=== PATIENT | male | born 1970 | race Caucasian/White ===

== ENCOUNTER 2021-02-04 04:22 | Emergency (ER) | payer SELFPAY ==
[2021-02-04 04:34] VITALS: BP 129/87; PULSE 83
--- NOTE | 2021-02-04 04:40 | EDM.PDOC ---
ED HPI GENERAL MEDICAL PROBLEM - General Chief Complaint: Upper Extremity Injury/Pain Stated Complaint: INJURED RIGHT SHOULDER Time Seen by Provider: 02/04/21 04:25 Source of Information: Reports: Patient History Limitations: Reports: Intoxication - History of Present Illness INITIAL COMMENTS - FREE TEXT/NARRATIVE: 50-year-old male who lunged out to try to stop his girlfriend from falling had a sudden pain in his right shoulder, he is holding his arm next to his body which is his most comfortable position and has an obvious deformity. He is intoxicated but no other complaints. Onset: Sudden Duration: Hour(s): (2 hours ago) Location: Reports: Upper Extremity, Right Associated Symptoms: Reports: No Other Symptoms Right Shoulder Pain Score (Numeric/FACES): 9 - Related Data Allergies Allergy/AdvReac Type Severity Reaction Status Date / Time No Known Allergies Allergy Verified 02/04/21 04:30 Home Meds: Home Meds NK [No Known Home Meds] 02/04/21 [History] Past Medical History - Past Health History Medical/Surgical History: Denies Medical/Surgical History Social & Family History - Tobacco Use Tobacco Use Status *Q: Light Tobacco User Years of Tobacco use: 25 Packs/Tins Daily: 1 - Caffeine Use Caffeine Use: Reports: None - Alcohol Use Days Per Week of Alcohol Use: 7 Number of Drinks Per Day: 2 Total Drinks Per Week: 14 - Recreational Drug Use Recreational Drug Use: No Review of Systems - Review of Systems Review Of Systems: See Below Constitutional: Denies: Fever Respiratory: Reports: No Symptoms Cardiovascular: Reports: No Symptoms GI/Abdominal: Reports: No Symptoms Musculoskeletal: Reports: Other (Right shoulder pain) Skin: Reports: No Symptoms ED EXAM, GENERAL - Physical Exam Exam: See Below Exam Limited By: No Limitations General Appearance: Alert, Other (Intoxicated) Head: Atraumatic Respiratory/Chest: No Respiratory Distress Extremities: Other (There is a fullness in the anterior right shoulder with a subdistal clavicle defect and significant pain with any passive range of motion of the right arm) Neurological: Alert, Oriented Psychiatric: No: Anxious Skin Exam: Warm, Dry Course - Vital Signs Last Recorded V/S: Last Vital Signs Temp 98.2 F 02/04/21 04:35 Pulse 83 02/04/21 04:35 Resp 20 02/04/21 04:35 BP 129/87 02/04/21 04:35 Pulse Ox 95 02/04/21 04:35 - Orders/Labs/Meds Orders: Active Orders 24 hr Category Date Time Status Consult to Orthopedic Clinic [CONS] Routine Cons 02/04/21 05:10 Active Shoulder 1V Rt [CR] Stat Exams 02/04/21 04:33 Taken Shoulder 1V Rt [CR] Stat Exams 02/04/21 04:54 Taken Meds: Medications Discontinued Medications Generic Name Dose Route Start Last Admin Trade Name Reyes PRN Reason Stop Dose Admin Propofol Confirm 02/04/21 05:00 Propofol 200 Mg/20 Ml Sdv Administered 02/04/21 05:01 Dose 200 mg .ROUTE .STK-MED ONE - Re-Assessments/Exams Free Text/Narrative Re-Assessment/Exam: 02/04/21 04:40 Right shoulder x-ray was obtained, anesthesia was consulted for assistance for sedation to reduce the shoulder. 02/04/21 05:11 With the assistance of propofol anesthesia provided by SERVICE LIAISON REPRESENTATIVE, shoulder was reduc ed without complications. A sling was applied and the patient recovered nicely. I am asking him to see Dr. Smith for a follow-up since this is a first- time dislocation, he is young and actively employed. Departure - Departure Time of Disposition: 06:15 Disposition: Home, Self-Care 01 Clinical Impression: Dislocation of right shoulder joint Qualifiers: Encounter type: initial encounter Qualified Code(s): S43.004A - Unspecified dislocation of right shoulder joint, initial encounter - Discharge Information Instructions: Shoulder Dislocation, [id number] Referrals: PCP,None [Primary Care Provider] - Forms: ED Department Discharge Care Plan Goals: Keep arm in sling until rechecked with Dr. Smith this week. You should get a call later today to discuss an appointment time. Ibuprofen or naproxen will help with discomfort. Sepsis Event Note (ED) - Evaluation Sepsis Screening Result: No Definite Risk - Focused Exam Vital Signs: Vital Signs Temp Pulse Resp BP Pulse Ox 02/04/21 04:35 98.2 F 83 20 129/87 95 02/04/21 04:30 98.2 F 83 20 129/87 95 - My Orders Last 24 Hours: My Active Orders 02/04/21 04:33 Shoulder 1V Rt [CR] Stat 02/04/21 04:54 Shoulder 1V Rt [CR] Stat 02/04/21 05:10 Consult to Orthopedic Clinic [CONS] Routine - Assessment/Plan Last 24 Hours: My Active Orders 02/04/21 04:33 Shoulder 1V Rt [CR] Stat 02/04/21 04:54 Shoulder 1V Rt [CR] Stat 02/04/21 05:10 Consult to Orthopedic Clinic [CONS] Routine
[2021-02-04] MEDS ORDERED: Propofol 200 MG/20 ML SDV ONE (05:00)
--- NOTE | 2021-02-04 11:02 | CR ---
Shoulder 1V Rt, CLINICAL HISTORY: Fracture versus dislocation FINDINGS: There is an anterior dislocation at the glenohumeral joint. No fracture line is identified. Impression: Anterior dislocation of the humeral head Shoulder 1V Rt CLINICAL HISTORY: Postreduction FINDINGS: The anterior dislocation has been reduced. No fracture line is seen. IMPRESSION: Post reduction right shoulder dislocation No fracture seen
== END 2021-02-04 06:26 | disposition home or self-care (01) ==
LOC: JP.ED 04:22
DX: S43.014A Anterior dislocation of right humerus, initial encounter (principal); Z72.0 Tobacco use; X50.0XXA Overexertion from strenuous movement or load, initial encounter
CPT/HCPCS: 23650; 73020; 99283; J2704

== ENCOUNTER 2021-05-29 08:05 | Day surgery (SDC) | payer OTHER ==
[~2021-05-29 08:05] MED LIST: Bupivacaine 0.5% 30 ML SDV ONE; Midazolam 1 MG/ML 2 ML SDV ONE; Propofol 200 MG/20 ML SDV ONE; fentaNYL 100 MCG/2 ML SDV ONE
[2021-05-29] MEDS ORDERED: Lactated Ringers 1,000 ML IV SCH (08:45)
[2021-05-29] MEDS ORDERED: Nozin Nasal Sanitizer NASBOTH ONE (08:45)
[2021-05-29] MEDS ORDERED: ceFAZolin 2 GM in Premix Bag 1 BAG IV ONE (09:15)
[2021-05-29] MEDS ORDERED: Bupivacaine 0.5% 30 ML SDV ONE (09:46)
[2021-05-29] MEDS ORDERED: Midazolam 1 MG/ML 2 ML SDV ONE ×2 (10:11→11:02)
[2021-05-29] MEDS ORDERED: Propofol 200 MG/20 ML SDV ONE ×3 (10:23→11:34)
[2021-05-29] MEDS ORDERED: Lactated Ringers 1,000 ML ONE (10:28)
[2021-05-29] MEDS ORDERED: fentaNYL 100 MCG/2 ML SDV ONE (12:11)
[2021-05-29 13:48] VITALS: BP 128/86; PULSE 59
--- NOTE | 2021-05-29 19:44 | OR ---
DATE OF PROCEDURE: 05/29/2021 SURGEON: Prashant Smith MD PREOPERATIVE DIAGNOSIS: Traumatic rotator cuff tear, right shoulder. POSTOPERATIVE DIAGNOSES: 1. Traumatic rotator cuff tear, right shoulder, large and retracted. 2. Partial biceps tendon tear, long head. 3. Subluxation of biceps tendon, long head. PROCEDURE: 1. Arthroscopy, right shoulder with biceps tenotomy. 2. Arthroscopic rotator cuff repair. CONTRACT TECHNICAL WRITER: STEVIE Howe ANESTHESIA: Interscalene block with sedation. INDICATIONS: Mr. Guzman is a 51-year-old gentleman, who sustained a dislocation of his right shoulder in January of this year. He has had difficulty regaining active range of motion and strength. When conservative treatment and therapy failed, underwent an MRI which reveals a large full-thickness tear of the rotator cuff with some retraction. He now presents to the operating room for attempted repair. Risks, benefits, and potential complications of the procedure were discussed. DESCRIPTION OF PROCEDURE: After adequate anesthesia was obtained, the patient was placed in a lateral decubitus position and secured with a may bag positioner. Right shoulder and arm were prepped and draped in a sterile fashion and 10 pounds of traction was placed in shoulder traction unit. A standard posterior portal was established. The scope was introduced. The glenohumeral joint was inspected. This revealed no evidence of a significant articular cartilage damage to the humeral head or glenoid. Glenoid labrum was intact. Biceps attachment and superior labrum were intact. However, the biceps was subluxed out of the groove and there is a partial tear of the tendon near the area where it would enter the groove. Due to the combination of partial tear and subluxation, decision was made to proceed with biceps tenotomy. Anterior portal was established and the biceps was transected at its attachment to the superior glenoid using radiofrequency ablation. Remainder of the shoulder was visualized with an intact subscapularis. The rotator cuff showed a large retracted tear. The scope was removed from the joint and placed in the subacromial space. This revealed evidence of significant impingement against the coracoacromial ligament, which was extremely frayed. Rotator cuff showed a large retracted tear with delamination and fraying more of the posterior cuff in the infraspinatus. The supraspinous was detached and retracted. Some scarring was present to the overlying bursa as well as to the glenoid. Using a combination of the shaver, radiofrequency ablation and an elevator adhesions were released allowing better mobilization of the cuff. Once the delaminated portion was debrided and the cuff was mobilized, the edge of the tendon could be brought out just beyond the level of the articular surface, but could not be mobilize completely out to the edge of the tuberosity. A decision was made to proceed with repair. The superior surface of the tuberosity up to the level of the articular surface was debrided with a shaver and then lightly decorticated with a bur. Undersurface of the acromion was decompressed with a radiofrequency ablation on removing the impinging coracoacromial ligament leaving a thin soft tissue layer over the acromion and the acromioplasty was not performed as it was felt that this would not enhance the procedure. The edges of the cuff were debrided with a shaver and an Orthocord suture was placed through the posterior portion of the tear and the anterior portion the tear approximately 8 mm from the apex of the tear and used to converge the margins. A Mitek helix anchor was then placed anteriorly. The tuberosity and all 4 limbs of the sutures were brought up through the supraspinatus. Separate anchor was then placed more posteriorly and all 4 limbs were brought up through the posterior portion of the tear in the infraspinatus. These were then tied down from posterior to anterior, achieving approximation of the tendon to the tuberosity. One of the peers of tight sutures from the anterior anchor and one from the posterior anchor were selected and secured into the lateral aspect of the tuberosity with a knotless anchor. The other set of sutures were then placed more anteriorly with a second knotless anchor creating a crisscross suture bridge. The suture that had been placed into the apex was also secured into the tuberosity using a knotless anchor. Once this was accomplished, the arm could be taken through internal and external rotation and this was a stable repair. Shoulder was drained. Port sites were closed with 3-0 Monocryl and Steri-Strips. Sterile dressing was then applied. The patient tolerated the procedure very well. There were no complications and taken from the operating room in stable condition. Prashant Smith MD /[id number]
== END 2021-05-29 14:10 | disposition home or self-care (01) ==
LOC: JP.SDS 08:05
PROVIDERS: ATTEND Specialist
DX: S46.011A Strain of muscle(s) and tendon(s) of the rotator cuff of right shoulder, initial encounter (principal); S46.111A Strain of muscle, fascia and tendon of long head of biceps, right arm, initial encounter; S43.001A Unspecified subluxation of right shoulder joint, initial encounter; I10 Essential (primary) hypertension; F17.210 Nicotine dependence, cigarettes, uncomplicated; Z79.899 Other long term (current) drug therapy
CPT/HCPCS: 29827; A9270; C1713; J0690; J2250; J2704; J3010; J3490; J7120

== ENCOUNTER 2022-11-30 08:54 | Emergency (ER) | payer MEDICAID ==
[2022-11-30] MEDS ORDERED: Ketorolac 30 MG/ML SDV IM ONE (09:43)
[2022-11-30] MEDS ORDERED: Sodium Chloride 0.9% 10 ML Syringe FLUSH PRN (09:43)
[2022-11-30] MEDS ORDERED: Naloxone 0.4 MG/ML SDV IVPUSH PRN (09:45)
[2022-11-30] MEDS ORDERED: HYDROmorphone 1 MG/ML Syringe IVPUSH ONE (09:45)
[2022-11-30] MEDS ORDERED: Ketorolac 30 MG/ML SDV IVPUSH ONE (09:46)
[2022-11-30 10:02] LABS: BASOPHILS ABSOLUTE AUTO 0.04 K/uL (0.00-0.10); BASOPHILS PERCENT AUTO 0.4 % (0.1-1.3); EOSINOPHILS ABSOLUTE AUTO 0.33 K/uL (0.00-0.40); EOSINOPHILS PERCENT AUTO 3.3 % (0.0-5.4); HEMATOCRIT 40.5 % (38.4-49.7); HEMOGLOBIN 13.9 g/dL (12.9-16.9); IMMATURE GRAN ABSOLUTE AUTO 0.04 K/uL (0.00-0.23); IMMATURE GRAN PERCENT AUTO 0.4 % (0.0-0.7); LYMPHOCYTES ABSOLUTE AUTO 3.34 K/uL (0.8-3.3); LYMPHOCYTES PERCENT AUTO 32.9 % (11.4-47.7); MEAN CORPUSCULAR HEMOGLOBIN 31.4 pg (31.6-35.5); MEAN CORPUSCULAR HGB CONC 34.3 g/dL (31.6-35.5); MEAN CORPUSCULAR VOLUME 91.6 fL (81.4-99.0); MONOCYTES ABSOLUTE AUTO 0.64 K/uL (0.20-0.90); MONOCYTES PERCENT AUTO 6.3 % (3.3-12.6); NEUTROPHILS ABSOLUTE AUTO 5.76 K/uL (1.0-7.6); NEUTROPHILS PERCENT AUTO 56.7 % (40.0-78.1); PLATELET COUNT,PLT 265 K/uL (130-375); RED BLOOD CELL COUNT 4.42 M/uL (4.14-5.76); WHITE BLOOD CELL COUNT,WBC 10.2 K/uL (3.2-11.0)
[2022-11-30 10:25] LABS: CALCIUM 9.4 mg/dL (8.5-10.1); CREATININE 0.9 mg/dL (0.8-1.3); EST CRCL DRUG DOSING (CG) 90.78 mL/min; POTASSIUM,K 4.1 mmol/L (3.6-5.2)
[2022-11-30 10:26] LABS: ANION GAP 19.1 mmol/L (5.0-14.0)
[2022-11-30 10:36] VITALS: BP 129/84; PULSE 84
== END 2022-11-30 11:22 | disposition home or self-care (01) ==
LOC: JP.ED 08:54
DX: G89.18 Other acute postprocedural pain (principal); M54.16 Radiculopathy, lumbar region; I10 Essential (primary) hypertension; Z72.0 Tobacco use; Z79.899 Other long term (current) drug therapy; Z98.1 Arthrodesis status
CPT/HCPCS: 36415; 72100; 80048; 85025; 86140; 96374; 96375; 99284; J1170; J1885; J3490

== ENCOUNTER 2023-06-21 10:51 | Inpatient (IN) | payer MEDICAID ==
[2023-06-21] MEDS ORDERED: Sodium Chloride 0.9% 10 ML Syringe FLUSH PRN (11:32)
[2023-06-21 11:44] LABS: BASOPHILS ABSOLUTE AUTO 0.04 K/uL (0.00-0.10); BASOPHILS PERCENT AUTO 0.3 % (0.1-1.3); EOSINOPHILS ABSOLUTE AUTO 0.08 K/uL (0.00-0.40); EOSINOPHILS PERCENT AUTO 0.6 % (0.0-5.4); HEMATOCRIT 41.9 % (38.4-49.7); HEMOGLOBIN 14.8 g/dL (12.9-16.9); IMMATURE GRAN ABSOLUTE AUTO 0.07 K/uL (0.00-0.23); IMMATURE GRAN PERCENT AUTO 0.5 % (0.0-0.7); LYMPHOCYTES ABSOLUTE AUTO 2.03 K/uL (0.8-3.3); LYMPHOCYTES PERCENT AUTO 14.5 % (11.4-47.7); MEAN CORPUSCULAR HEMOGLOBIN 37.4 pg (31.6-35.5); MEAN CORPUSCULAR HGB CONC 35.3 g/dL (31.6-35.5); MEAN CORPUSCULAR VOLUME 105.8 fL (81.4-99.0); MONOCYTES PERCENT AUTO 8.5 % (3.3-12.6); NEUTROPHILS ABSOLUTE AUTO 10.62 K/uL (1.0-7.6); NEUTROPHILS PERCENT AUTO 75.6 % (40.0-78.1); PLATELET COUNT,PLT 98 K/uL (130-375); RED BLOOD CELL COUNT 3.96 M/uL (4.14-5.76)
[2023-06-21 12:01] LABS: CALCIUM 8.5 mg/dL (8.5-10.1); CREATININE 0.8 mg/dL (0.8-1.3); EST CRCL DRUG DOSING (CG) 104.33 mL/min; POTASSIUM,K 3.6 mmol/L (3.6-5.2)
[2023-06-21 12:02] LABS: ANION GAP 11.6 mmol/L (5.0-14.0)
[2023-06-21] MEDS ORDERED: Sodium Chloride 0.9% 1,000 ML IV ONE (12:03)
[2023-06-21] MEDS ORDERED: HYDROmorphone 0.5 MG/0.5 ML Syringe IVPUSH ONE (12:03)
[2023-06-21 12:17] LABS: PROTHROMBIN TIME 10.3 sec (9.2-10.6)
[2023-06-21 12:21] LABS: A/G RATIO 0.7 (1.2-2.2); ALBUMIN 2.9 g/dL (3.4-5.0); BILIRUBIN DIRECT 1.01 mg/dL (0.0-0.2); BILIRUBIN INDIRECT 1.09; BILIRUBIN TOTAL 2.1 mg/dL (0.2-1.0); PROTEIN TOTAL,TP 7.2 g/dL (6.4-8.2)
[2023-06-21 12:41] LABS: CORONAVIRUS COVID-19 NAA NEGATIVE (NEGATIVE); INFLUENZA A NAA NEGATIVE (NEGATIVE); INFLUENZA B NAA NEGATIVE (NEGATIVE); RESPIRATORY SYNCYTIAL VIR NAA NEGATIVE (NEGATIVE)
[2023-06-21] MEDS ORDERED: LORazepam 1 MG Tab PO SCH (12:53)
[2023-06-21] MEDS ORDERED: Albuterol 0.083% 2.5 MG/3 ML Neb Soln NEB PRN (12:53)
[2023-06-21] MEDS ORDERED: Ondansetron 4 MG/2 ML SDV IV PRN (12:53)
[2023-06-21] MEDS ORDERED: Polyethylene Glycol 3350 Powder 17 GM Packet PO PRN (12:53)
[2023-06-21] MEDS ORDERED: Naloxone 0.4 MG/ML SDV IVPUSH PRN (12:53)
[2023-06-21] MEDS ORDERED: MVI, Adult with Vitamin K 10 ML, Thiamine 100 MG, Folic Acid 1 MG, Magnesium Sulfate 2 ... IV ONE ×5 (13:15)
[2023-06-21] MEDS: Sennosides/Docusate Sodium 50-8.6 MG Tab PO SCH ×2 (13:56→22:09)
[2023-06-21] MEDS: Folic Acid 1 MG Tab PO SCH (13:57)
[2023-06-21] MEDS: Thiamine 100 MG Tab PO SCH (13:57)
[2023-06-21] MEDS ORDERED: Gabapentin 100 MG Cap PO SCH (14:00)
[2023-06-21] MEDS: Heparin Sodium 5,000 Units/ML Vial SUBCUT SCH ×2 (15:02→22:08)
[2023-06-21] MEDS: Gabapentin 300 MG Cap PO SCH ×2 (15:02→22:09)
[2023-06-21] MEDS: DULoxetine 30 MG Cap PO SCH (15:02)
[2023-06-21] MEDS: oxyCODONE 5 MG Tab PO PRN ×2 (17:21→22:13)
[2023-06-21] MEDS: HYDROmorphone 0.5 MG/0.5 ML Syringe IVPUSH PRN (18:45)
[2023-06-22] MEDS: Sodium Chloride 0.9% 1,000 ML IV SCH ×3 (00:15→21:35)
[2023-06-22 05:36] LABS: HEMATOCRIT 37.5 % (38.4-49.7); HEMOGLOBIN 13.1 g/dL (12.9-16.9); MEAN CORPUSCULAR HEMOGLOBIN 36.8 pg (31.6-35.5); MEAN CORPUSCULAR HGB CONC 34.9 g/dL (31.6-35.5); MEAN CORPUSCULAR VOLUME 105.3 fL (81.4-99.0); RED BLOOD CELL COUNT 3.56 M/uL (4.14-5.76)
[2023-06-22 05:52] LABS: A/G RATIO 0.6 (1.2-2.2); ALANINE AMINOTRANSFERASE,ALT 67 U/L (12-78); ALBUMIN 2.3 g/dL (3.4-5.0); ALKALINE PHOSPHATASE 210 U/L (46-116); ASPARTATE AMNIOTRANSFERASE,AST 72 U/L (15-37); BILIRUBIN TOTAL 1.6 mg/dL (0.2-1.0); BLOOD UREA NITROGEN,BUN 8 mg/dL (7-18); CALCIUM 7.8 mg/dL (8.5-10.1); CARBON DIOXIDE,CO2 24 mmol/L (21-32); CHLORIDE,CL 104 mmol/L (100-108); CREATININE 0.6 mg/dL (0.8-1.3); EST CRCL DRUG DOSING (CG) 139.11 mL/min; ESTIMATED GFR 114 mL/min (>60); GLUCOSE RANDOM 98 mg/dL (74-106); MAGNESIUM 1.9 mg/dL (1.8-2.4); POTASSIUM,K 3.9 mmol/L (3.6-5.2); PROTEIN TOTAL,TP 6.2 g/dL (6.4-8.2); SODIUM,NA 134 mmol/L (140-148)
[2023-06-22] MEDS: HYDROmorphone 0.5 MG/0.5 ML Syringe IVPUSH PRN ×4 (05:56→19:44)
[2023-06-22 06:11] LABS: ANION GAP 9.9 mmol/L (5.0-14.0)
[2023-06-22] MEDS: DULoxetine 30 MG Cap PO SCH (08:23)
[2023-06-22] MEDS: Thiamine 100 MG Tab PO SCH (08:23)
[2023-06-22] MEDS: Folic Acid 1 MG Tab PO SCH (08:23)
[2023-06-22] MEDS: Gabapentin 300 MG Cap PO SCH ×4 (08:23→20:14)
[2023-06-22] MEDS: Lisinopril 20 MG Tab PO SCH (08:24)
[2023-06-22] MEDS: Sennosides/Docusate Sodium 50-8.6 MG Tab PO SCH ×3 (08:24→20:15)
[2023-06-22] MEDS ORDERED: Rocuronium 50 MG/5 ML Vial ONE (10:02)
[2023-06-22] MEDS ORDERED: fentaNYL 250 MCG/5 ML SDV ONE (10:02)
[2023-06-22] MEDS ORDERED: Glycopyrrolate 0.2 MG/ML 5 ML MDV ONE (10:02)
[2023-06-22] MEDS ORDERED: Succinylcholine 200 MG/10 ML MDV ONE (10:02)
[2023-06-22] MEDS ORDERED: Ondansetron 4 MG/2 ML SDV ONE (10:02)
[2023-06-22] MEDS ORDERED: Neostigmine Methylsulfate 10 MG/10 ML MDV ONE (10:02)
[2023-06-22] MEDS ORDERED: Dexamethasone 4 MG/ML SDV ONE (10:02)
[2023-06-22] MEDS ORDERED: Propofol 200 MG/20 ML SDV ONE (10:02)
[2023-06-22] MEDS ORDERED: Bupivacaine 0.5% 50 ML MDV ONE (11:15)
[2023-06-22] MEDS: ceFAZolin 2 GM in Premix Bag 1 BAG IV ONE ×2 (11:35→13:58)
[2023-06-22] MEDS: oxyCODONE 5 MG Tab PO PRN ×3 (14:01→23:05)
[2023-06-22] MEDS: Acetaminophen 325 MG Tab PO PRN ×2 (15:13→23:06)
[2023-06-22] MEDS: Aspirin 325 MG Tab.EC PO SCH (19:46)
[2023-06-23] MEDS: oxyCODONE 5 MG Tab PO PRN ×5 (03:09→22:13)
[2023-06-23 04:53] LABS: HEMATOCRIT 34.8 % (38.4-49.7); HEMOGLOBIN 11.9 g/dL (12.9-16.9); MEAN CORPUSCULAR HGB CONC 34.2 g/dL (31.6-35.5); MEAN CORPUSCULAR VOLUME 108.1 fL (81.4-99.0); RED BLOOD CELL COUNT 3.22 M/uL (4.14-5.76)
[2023-06-23 05:09] LABS: CREATININE 0.7 mg/dL (0.8-1.3); EST CRCL DRUG DOSING (CG) 119.24 mL/min; POTASSIUM,K 4.8 mmol/L (3.6-5.2)
[2023-06-23 05:15] LABS: ANION GAP 11.8 mmol/L (5.0-14.0)
[2023-06-23] MEDS: Sodium Chloride 0.9% 1,000 ML IV SCH ×2 (07:27→17:38)
[2023-06-23] MEDS: Gabapentin 300 MG Cap PO SCH ×3 (08:20→22:11)
[2023-06-23] MEDS: Lisinopril 20 MG Tab PO SCH (08:20)
[2023-06-23] MEDS: Folic Acid 1 MG Tab PO SCH (08:20)
[2023-06-23] MEDS: DULoxetine 30 MG Cap PO SCH (08:20)
[2023-06-23] MEDS: Sennosides/Docusate Sodium 50-8.6 MG Tab PO SCH ×2 (08:20→22:11)
[2023-06-23] MEDS: Aspirin 325 MG Tab.EC PO SCH ×2 (08:20→22:11)
[2023-06-23] MEDS: Thiamine 100 MG Tab PO SCH (08:20)
[2023-06-23] MEDS: HYDROmorphone 0.5 MG/0.5 ML Syringe IVPUSH PRN ×2 (10:35→17:38)
[2023-06-23] MEDS: Acetaminophen 325 MG Tab PO PRN ×2 (10:35→16:11)
[2023-06-24] MEDS: Sodium Chloride 0.9% 1,000 ML IV SCH (03:41)
[2023-06-24] MEDS: Acetaminophen 325 MG Tab PO PRN ×4 (05:20→18:21)
[2023-06-24] MEDS: oxyCODONE 5 MG Tab PO PRN ×5 (05:21→22:15)
[2023-06-24] MEDS: Folic Acid 1 MG Tab PO SCH (08:58)
[2023-06-24] MEDS: Thiamine 100 MG Tab PO SCH (08:58)
[2023-06-24] MEDS: Aspirin 325 MG Tab.EC PO SCH ×2 (08:58→20:39)
[2023-06-24] MEDS: Gabapentin 300 MG Cap PO SCH ×3 (08:58→20:39)
[2023-06-24] MEDS: DULoxetine 30 MG Cap PO SCH (08:58)
[2023-06-24] MEDS: Sennosides/Docusate Sodium 50-8.6 MG Tab PO SCH ×2 (08:59→20:39)
[2023-06-24] MEDS: Lisinopril 20 MG Tab PO SCH (08:59)
[2023-06-24] MEDS: tiZANidine 2 MG Tab PO PRN ×2 (15:50→22:14)
[2023-06-25] MEDS: Acetaminophen 325 MG Tab PO PRN (01:39)
[2023-06-25 06:06] LABS: HEMATOCRIT 31.4 % (38.4-49.7); HEMOGLOBIN 10.9 g/dL (12.9-16.9); MEAN CORPUSCULAR HEMOGLOBIN 36.8 pg (31.6-35.5); MEAN CORPUSCULAR HGB CONC 34.7 g/dL (31.6-35.5); MEAN CORPUSCULAR VOLUME 106.1 fL (81.4-99.0); RED BLOOD CELL COUNT 2.96 M/uL (4.14-5.76); WHITE BLOOD CELL COUNT,WBC 10.7 K/uL (3.2-11.0)
[2023-06-25] MEDS: Gabapentin 300 MG Cap PO SCH ×3 (08:40→21:22)
[2023-06-25] MEDS: Folic Acid 1 MG Tab PO SCH (08:40)
[2023-06-25] MEDS: Aspirin 325 MG Tab.EC PO SCH ×2 (08:41→21:22)
[2023-06-25] MEDS: DULoxetine 30 MG Cap PO SCH (08:42)
[2023-06-25] MEDS: Thiamine 100 MG Tab PO SCH (08:42)
[2023-06-25] MEDS: Sennosides/Docusate Sodium 50-8.6 MG Tab PO SCH ×2 (08:42→21:22)
[2023-06-25] MEDS: Lisinopril 20 MG Tab PO SCH (08:43)
[2023-06-25] MEDS: oxyCODONE 5 MG Tab PO PRN ×3 (08:46→23:40)
[2023-06-25] MEDS: tiZANidine 2 MG Tab PO PRN ×2 (14:53→21:23)
[2023-06-25] MEDS ORDERED: Hydrocortisone 1% Crm 30 GM Tube TOP PRN (20:36)
[2023-06-25] MEDS ORDERED: diphenhydrAMINE 25 MG Cap PO PRN (20:38)
[2023-06-26] MEDS: tiZANidine 2 MG Tab PO PRN (07:48)
[2023-06-26] MEDS: Gabapentin 300 MG Cap PO SCH (08:42)
[2023-06-26] MEDS: Aspirin 325 MG Tab.EC PO SCH (08:42)
[2023-06-26] MEDS: Lisinopril 20 MG Tab PO SCH (08:43)
[2023-06-26] MEDS: Folic Acid 1 MG Tab PO SCH (08:44)
[2023-06-26] MEDS: Sennosides/Docusate Sodium 50-8.6 MG Tab PO SCH (08:44)
[2023-06-26] MEDS: Thiamine 100 MG Tab PO SCH (08:44)
[2023-06-26] MEDS: DULoxetine 30 MG Cap PO SCH (08:44)
[2023-06-26] MEDS: oxyCODONE 5 MG Tab PO PRN ×2 (09:07→13:40)
[2023-06-26] MEDS: Acetaminophen 325 MG Tab PO PRN ×2 (09:07→13:40)
[2023-06-26 12:40] VITALS: BP 136/73; PULSE 81
== END 2023-06-26 15:05 | disposition home or self-care (01) | DRG 482 ==
LOC: JP.ED 10:51 → JP.ICU 11:53
PROVIDERS: ADMIT Hospitalist; ATTEND Internal Medicine
PROC: 0QS706Z Reposition Left Upper Femur with Intramedullary Internal Fixation Device, Open Approach (ICD-10-PCS; principal; 2023-06-22 11:00)
DX: S72.142A Displaced intertrochanteric fracture of left femur, initial encounter for closed fracture (principal); G89.29 Other chronic pain; W18.30XA Fall on same level, unspecified, initial encounter; M43.06 Spondylolysis, lumbar region; H54.7 Unspecified visual loss; F17.210 Nicotine dependence, cigarettes, uncomplicated; F10.90 Alcohol use, unspecified, uncomplicated; M54.50 Low back pain, unspecified; Y92.098 Other place in other non-institutional residence as the place of occurrence of the external cause; Z79.899 Other long term (current) drug therapy; Z98.890 Other specified postprocedural states
CPT/HCPCS: 0241U; 36415; 72020; 72020-26; 73501-26-LT; 73501-LT; 73502-26-LT; 73502-LT; 73551-26-LT; 73551-LT; 76000; 80048; 80053; 80076; 80307; 83735; 85025; 85027; 85610; 93005; 93010; 97110-GP; 97116-GP; 97161-GP; 99222; 99232; 99238; 99284; 99285; A9270-GY; C1713; C1776; J0330; J0690; J1100; J1170; J1644; J2405; J2704; J2710; J3010; J3411; J3475; J3490; J7030

== ENCOUNTER 2023-07-04 06:58 | Emergency (ER) | payer MEDICAID ==
[2023-07-04] MEDS ORDERED: fentaNYL 50 MCG/ML SDV IVPUSH PRN (07:15)
[2023-07-04] MEDS ORDERED: Naloxone 0.4 MG/ML SDV IVPUSH PRN (07:15)
[2023-07-04 08:41] VITALS: BP 118/63; PULSE 92
[2023-07-04] MEDS ORDERED: oxyCODONE 5 MG Tab PO ONE (09:13)
== END 2023-07-04 09:40 | disposition home or self-care (01) ==
LOC: JP.ED 06:58
DX: S72.145A Nondisplaced intertrochanteric fracture of left femur, initial encounter for closed fracture (principal); S62.355A Nondisplaced fracture of shaft of fourth metacarpal bone, left hand, initial encounter for closed fracture; S70.02XA Contusion of left hip, initial encounter
CPT/HCPCS: 73130; 73502; 99283; A9270; J3010; 29125; 96374; 99284-25

== ENCOUNTER 2024-02-22 18:17 | Emergency (ER) | payer MEDICAID ==
[2024-02-22 18:47] LABS: BASOPHILS ABSOLUTE AUTO 0.05 K/uL (0.00-0.10); BASOPHILS PERCENT AUTO 0.3 % (0.1-1.3); EOSINOPHILS ABSOLUTE AUTO 0.12 K/uL (0.00-0.40); EOSINOPHILS PERCENT AUTO 0.7 % (0.0-5.4); HEMATOCRIT 28.5 % (38.4-49.7); HEMOGLOBIN 10.6 g/dL (12.9-16.9); IMMATURE GRAN ABSOLUTE AUTO 0.23 K/uL (0.00-0.23); IMMATURE GRAN PERCENT AUTO 1.4 % (0.0-0.7); LYMPHOCYTES ABSOLUTE AUTO 2.96 K/uL (0.8-3.3); LYMPHOCYTES PERCENT AUTO 18.4 % (11.4-47.7); MEAN CORPUSCULAR HGB CONC 37.2 g/dL (31.6-35.5); MEAN CORPUSCULAR VOLUME 107.5 fL (81.4-99.0); MONOCYTES ABSOLUTE AUTO 1.46 K/uL (0.20-0.90); MONOCYTES PERCENT AUTO 9.1 % (3.3-12.6); NEUTROPHILS ABSOLUTE AUTO 11.26 K/uL (1.0-7.6); NEUTROPHILS PERCENT AUTO 70.1 % (40.0-78.1); PLATELET COUNT,PLT 124 K/uL (130-375); RED BLOOD CELL COUNT 2.65 M/uL (4.14-5.76); WHITE BLOOD CELL COUNT,WBC 16.1 K/uL (3.2-11.0)
[2024-02-22 18:53] LABS: INR 1.3; PROTHROMBIN TIME 12.8 sec (9.2-10.6)
[2024-02-22] MEDS: Sodium Chloride 0.9% 1,000 ML IV SCH ×3 (19:00→21:35)
[2024-02-22 19:02] LABS: CHLORIDE,CL 101 mmol/L (100-108); ESTIMATED GFR 6 mL/min (>60); GLUCOSE RANDOM 119 mg/dL (74-106); POTASSIUM,K 4.4 mmol/L (3.6-5.2); SODIUM,NA 133 mmol/L (140-148)
[2024-02-22 19:10] LABS: ANION GAP 21.4 mmol/L (5.0-14.0)
[2024-02-22 19:11] LABS: BLOOD UREA NITROGEN,BUN 81 mg/dL (7-18); CARBON DIOXIDE,CO2 15 mmol/L (21-32); CREATININE 9.6 mg/dL (0.8-1.3)
[2024-02-22 19:13] LABS: A/G RATIO 0.4 (1.2-2.2); ALBUMIN 2.1 g/dL (3.4-5.0); BILIRUBIN DIRECT 2.02 mg/dL (0.0-0.2); BILIRUBIN INDIRECT 0.68; BILIRUBIN TOTAL 2.7 mg/dL (0.2-1.0)
[2024-02-22 19:17] LABS: TROPONIN I HIGH SENSITIVITY < 4.0 pg/mL (<=60.3)
[2024-02-22] MEDS: Sodium Chloride 0.9% 1,000 ML IV ONE (19:44)
[2024-02-22] MEDS: Norepinephrine Bit/D5W Premix 250 ML IV SCH (20:35)
[2024-02-22] MEDS: Piperacillin/Tazobactam 4.5 GM in Sodium Chloride 0.9% 100 ML IV ONE (21:35)
[2024-02-22 22:24] LABS: BASE EXCESS ARTERIAL -12.5 mm/L; BICARBONATE,ARTERIAL 11.6 mmol/L (22.0-26.0); O2 SATURATION ARTERIAL 98.9 % (95.0-98.0); OXYHEMOGLOBIN 94.9 %; PCO2 ARTERIAL 21.8 mmHg (35.0-42.0); TOTAL HEMOGLOBIN 8.6 g/dL (13.5-18.0)
[2024-02-22] MEDS ORDERED: Vasopressin 100 UNITS in Dextrose 5% in Water 250 ML IV SCH (22:30)
[2024-02-22 23:32] VITALS: BP 95/53; PULSE 106
== END 2024-02-22 23:00 ==
LOC: JP.ED 18:17
DX: N17.9 Acute kidney failure, unspecified (principal); I10 Essential (primary) hypertension; Z79.899 Other long term (current) drug therapy
CPT/HCPCS: 36415; 36600; 70450; 71250; 74176; 80048; 80076; 80307; 82803; 83605; 84484; 85025; 85610; 87040; 93005; 93010; 96361; 96365; 96367; 96368; 99285; 99291; J2543; J3370; J3490; J7030; J7050

== ENCOUNTER 2024-06-16 11:25 | Emergency (ER) | payer MEDICAID ==
[2024-06-16 12:06] VITALS: BP 99/72; PULSE 97
== END 2024-06-16 14:42 | disposition home or self-care (01) ==
LOC: JP.ED 11:25
DX: S50.02XA Contusion of left elbow, initial encounter (principal); R53.1 Weakness; W01.0XXA Fall on same level from slipping, tripping and stumbling without subsequent striking against object, initial encounter
CPT/HCPCS: 70450; 70450-26; 72125; 72125-26; 73070-26-LT; 73070-LT; 99284; 99285

== ENCOUNTER 2024-06-30 16:29 | Emergency (ER) | payer MEDICAID ==
[2024-06-30 17:59] LABS: BASOPHILS ABSOLUTE AUTO 0.03 K/uL (0.00-0.10); BASOPHILS PERCENT AUTO 0.3 % (0.1-1.3); EOSINOPHILS ABSOLUTE AUTO 0.22 K/uL (0.00-0.40); EOSINOPHILS PERCENT AUTO 2.5 % (0.0-5.4); HEMATOCRIT 26.1 % (38.4-49.7); HEMOGLOBIN 9.3 g/dL (12.9-16.9); IMMATURE GRAN PERCENT AUTO 0.2 % (0.0-0.7); LYMPHOCYTES ABSOLUTE AUTO 1.68 K/uL (0.8-3.3); LYMPHOCYTES PERCENT AUTO 19.2 % (11.4-47.7); MEAN CORPUSCULAR HEMOGLOBIN 31.5 pg (31.6-35.5); MEAN CORPUSCULAR HGB CONC 35.6 g/dL (31.6-35.5); MEAN CORPUSCULAR VOLUME 88.5 fL (81.4-99.0); MONOCYTES ABSOLUTE AUTO 0.95 K/uL (0.20-0.90); MONOCYTES PERCENT AUTO 10.9 % (3.3-12.6); NEUTROPHILS ABSOLUTE AUTO 5.85 K/uL (1.0-7.6); NEUTROPHILS PERCENT AUTO 66.9 % (40.0-78.1); PLATELET COUNT,PLT 143 K/uL (130-375); RED BLOOD CELL COUNT 2.95 M/uL (4.14-5.76); WHITE BLOOD CELL COUNT,WBC 8.8 K/uL (3.2-11.0)
[2024-06-30 18:05] LABS: IMMATURE GRAN ABSOLUTE AUTO 0.02 K/uL (0.00-0.23)
[2024-06-30 18:08] VITALS: BP 96/72; PULSE 97
[2024-06-30 18:19] LABS: INR 1.3; PROTHROMBIN TIME 13.4 sec (9.2-10.6)
[2024-06-30 18:22] LABS: A/G RATIO 0.4 (1.2-2.2); ALANINE AMINOTRANSFERASE,ALT 13 U/L (12-78); ALKALINE PHOSPHATASE 120 U/L (46-116); ASPARTATE AMNIOTRANSFERASE,AST 22 U/L (15-37); BILIRUBIN TOTAL 2.3 mg/dL (0.2-1.0); BLOOD UREA NITROGEN,BUN 22 mg/dL (7-18); CALCIUM 8.3 mg/dL (8.5-10.1); CARBON DIOXIDE,CO2 24 mmol/L (21-32); CHLORIDE,CL 102 mmol/L (100-108); CREATININE 1.5 mg/dL (0.8-1.3); EST CRCL DRUG DOSING (CG) 50.45 mL/min; ESTIMATED GFR 54 mL/min (>60); GLUCOSE RANDOM 135 mg/dL (74-106); POTASSIUM,K 3.8 mmol/L (3.6-5.2); PROTEIN TOTAL,TP 7.3 g/dL (6.4-8.2); SODIUM,NA 136 mmol/L (140-148)
[2024-06-30 18:24] LABS: ANION GAP 13.8 mmol/L (5.0-14.0)
[2024-06-30 18:27] LABS: LACTIC ACID 3.7 mmol/L (0.4-2.0)
== END 2024-06-30 19:24 | disposition left against medical advice (07) ==
LOC: JP.ED 16:29
DX: K70.31 Alcoholic cirrhosis of liver with ascites (principal); F10.10 Alcohol abuse, uncomplicated; D63.8 Anemia in other chronic diseases classified elsewhere; I10 Essential (primary) hypertension; F17.210 Nicotine dependence, cigarettes, uncomplicated; Z86.16 Personal history of COVID-19; Z88.8 Allergy status to other drugs, medicaments and biological substances; Z79.899 Other long term (current) drug therapy
CPT/HCPCS: 36415; 80053; 83605; 85025; 85610; 99284

== ENCOUNTER 2024-08-27 06:36 | Emergency (ER) | payer MEDICAID ==
[2024-08-27] MEDS: diphenhydrAMINE 50 MG/ML SDV IVPUSH ONE (06:57)
[2024-08-27] MEDS: Haloperidol Lactate 5 MG/ML SDV IVPUSH ONE (06:59)
[2024-08-27 07:30] LABS: BASOPHILS PERCENT AUTO 0.2 % (0.1-1.3); EOSINOPHILS ABSOLUTE AUTO 0.13 K/uL (0.00-0.40); EOSINOPHILS PERCENT AUTO 1.6 % (0.0-5.4); HEMATOCRIT 25.3 % (38.4-49.7); HEMOGLOBIN 8.8 g/dL (12.9-16.9); IMMATURE GRAN ABSOLUTE AUTO 0.03 K/uL (0.00-0.23); IMMATURE GRAN PERCENT AUTO 0.4 % (0.0-0.7); LYMPHOCYTES ABSOLUTE AUTO 2.36 K/uL (0.8-3.3); LYMPHOCYTES PERCENT AUTO 29.5 % (11.4-47.7); MEAN CORPUSCULAR HEMOGLOBIN 29.3 pg (31.6-35.5); MEAN CORPUSCULAR HGB CONC 34.8 g/dL (31.6-35.5); MEAN CORPUSCULAR VOLUME 84.3 fL (81.4-99.0); MONOCYTES ABSOLUTE AUTO 0.73 K/uL (0.20-0.90); MONOCYTES PERCENT AUTO 9.1 % (3.3-12.6); NEUTROPHILS ABSOLUTE AUTO 4.74 K/uL (1.0-7.6); NEUTROPHILS PERCENT AUTO 59.2 % (40.0-78.1); PLATELET COUNT,PLT 132 K/uL (130-375)
[2024-08-27 07:36] LABS: BASOPHILS ABSOLUTE AUTO 0.02 K/uL (0.00-0.10)
[2024-08-27 07:51] LABS: A/G RATIO 0.6 (1.2-2.2); ALANINE AMINOTRANSFERASE,ALT 14 U/L (12-78); ALBUMIN 2.3 g/dL (3.4-5.0); ALKALINE PHOSPHATASE 104 U/L (46-116); ASPARTATE AMNIOTRANSFERASE,AST 23 U/L (15-37); BILIRUBIN TOTAL 0.9 mg/dL (0.2-1.0); BLOOD UREA NITROGEN,BUN 70 mg/dL (7-18); CALCIUM 9.1 mg/dL (8.5-10.1); CARBON DIOXIDE,CO2 25 mmol/L (21-32); CHLORIDE,CL 102 mmol/L (100-108); EST CRCL DRUG DOSING (CG) 19.31 mL/min; ESTIMATED GFR 18 mL/min (>60); GLUCOSE RANDOM 115 mg/dL (74-106); POTASSIUM,K 4.5 mmol/L (3.6-5.2); PROTEIN TOTAL,TP 6.3 g/dL (6.4-8.2); SODIUM,NA 138 mmol/L (140-148)
[2024-08-27 07:53] LABS: ANION GAP 15.5 mmol/L (5.0-14.0)
[2024-08-27 07:54] LABS: CREATININE 3.7 mg/dL (0.8-1.3)
[2024-08-27 07:55] LABS: TROPONIN I HIGH SENSITIVITY 8.7 pg/mL (<=60.3)
[2024-08-27] MEDS: Sodium Chloride 0.9% 500 ML IV ONE (08:10)
[2024-08-27 08:28] LABS: BILIRUBIN,URINE NEGATIVE (NEGATIVE); COLOR,URINE YELLOW (YELLOW); GLUCOSE,URINE NEGATIVE (NEGATIVE); KETONES,URINE NEGATIVE (NEGATIVE); LEUKOCYTE ESTERASE,URINE NEGATIVE (NEGATIVE); NITRITE,URINE NEGATIVE (NEGATIVE); OCCULT BLOOD,URINE NEGATIVE (NEGATIVE); PROTEIN,URINE NEGATIVE (NEGATIVE); UROBILINOGEN,URINE 0.2 EU/dL (0.2-1.0)
[2024-08-27 08:35] LABS: AMORPHOUS SEDIMENT,URINE NOT SEEN; APPEARANCE,URINE CLEAR (CLEAR); BACTERIA,URINE RARE; EPITHELIAL CELLS,URINE RARE; MUCUS,URINE NOT SEEN; RBC,URINE 0-5 (0-5); WBC,URINE 0-5 (0-5)
[2024-08-27] MEDS: Lactulose Soln 10 GM/15 ML 15 ML UD Cup PO ONE ×2 (08:45→15:34)
[2024-08-27 08:46] LABS: INR 1.1; PROTHROMBIN TIME 11.3 sec (9.2-10.6)
[2024-08-27] MEDS: cefTRIAXone 1 GM in Sodium Chloride 0.9% 50 ML IV ONE (08:50)
[2024-08-27] MEDS: Sodium Chloride 0.9% 1,000 ML IV SCH (09:27)
[2024-08-27] MEDS: Sodium Chloride 0.9% 250 ML IV SCH (13:46)
[2024-08-27 15:49] VITALS: BP 87/61; PULSE 119
[2024-08-27] MEDS: LORazepam 2 MG/ML SDV IVPUSH ONE (16:00)
== END 2024-08-27 16:09 ==
LOC: JP.ED 06:36
DX: K76.82 Hepatic encephalopathy (principal); N17.9 Acute kidney failure, unspecified; I10 Essential (primary) hypertension; F17.210 Nicotine dependence, cigarettes, uncomplicated; Z88.8 Allergy status to other drugs, medicaments and biological substances; Z79.899 Other long term (current) drug therapy; Z86.16 Personal history of COVID-19
CPT/HCPCS: 36415; 51702; 70450; 71045; 80053; 80143; 80307; 81001; 82140; 84484; 85025; 85610; 93005; 96361; 96365; 96375; 99285; A9270; J0696; J1200; J1630; J2060; J7030

== ENCOUNTER 2024-10-10 13:59 | Emergency (ER) | payer MEDICAID ==
[2024-10-10 15:37] LABS: BASOPHILS ABSOLUTE AUTO 0.03 K/uL (0.00-0.10); BASOPHILS PERCENT AUTO 0.4 % (0.1-1.3); EOSINOPHILS ABSOLUTE AUTO 0.33 K/uL (0.00-0.40); EOSINOPHILS PERCENT AUTO 4.6 % (0.0-5.4); HEMATOCRIT 26.2 % (38.4-49.7); IMMATURE GRAN ABSOLUTE AUTO 0.03 K/uL (0.00-0.23); IMMATURE GRAN PERCENT AUTO 0.4 % (0.0-0.7); LYMPHOCYTES ABSOLUTE AUTO 1.58 K/uL (0.8-3.3); LYMPHOCYTES PERCENT AUTO 22.2 % (11.4-47.7); MEAN CORPUSCULAR HGB CONC 34.4 g/dL (31.6-35.5); MEAN CORPUSCULAR VOLUME 90.3 fL (81.4-99.0); MONOCYTES PERCENT AUTO 11.3 % (3.3-12.6); NEUTROPHILS ABSOLUTE AUTO 4.34 K/uL (1.0-7.6); NEUTROPHILS PERCENT AUTO 61.1 % (40.0-78.1); PLATELET COUNT,PLT 100 K/uL (130-375); WHITE BLOOD CELL COUNT,WBC 7.1 K/uL (3.2-11.0)
[2024-10-10 15:42] LABS: A/G RATIO 1.1 (1.2-2.2); ALANINE AMINOTRANSFERASE,ALT 13 U/L (12-78); ALBUMIN 3.2 g/dL (3.4-5.0); ALKALINE PHOSPHATASE 67 U/L (46-116); ASPARTATE AMNIOTRANSFERASE,AST 19 U/L (15-37); BILIRUBIN TOTAL 0.7 mg/dL (0.2-1.0); CALCIUM 8.6 mg/dL (8.5-10.1); CHLORIDE,CL 104 mmol/L (100-108); ESTIMATED GFR 7 mL/min (>60); GLUCOSE RANDOM 121 mg/dL (74-106); POTASSIUM,K 3.9 mmol/L (3.6-5.2); PROTEIN TOTAL,TP 6.1 g/dL (6.4-8.2); SODIUM,NA 137 mmol/L (140-148)
[2024-10-10 15:44] LABS: ANION GAP 21.9 mmol/L (5.0-14.0); CARBON DIOXIDE,CO2 15 mmol/L (21-32)
[2024-10-10 15:46] LABS: BLOOD UREA NITROGEN,BUN 79 mg/dL (7-18); CREATININE 8.5 mg/dL (0.8-1.3)
[2024-10-10 17:38] VITALS: BP 93/55; PULSE 58
== END 2024-10-10 18:18 ==
LOC: JP.ED 13:59
DX: N17.9 Acute kidney failure, unspecified (principal); I12.0 Hypertensive chronic kidney disease with stage 5 chronic kidney disease or end stage renal disease; N18.5 Chronic kidney disease, stage 5; F17.210 Nicotine dependence, cigarettes, uncomplicated; Z99.2 Dependence on renal dialysis; Z88.8 Allergy status to other drugs, medicaments and biological substances; Z79.899 Other long term (current) drug therapy; Z86.16 Personal history of COVID-19
CPT/HCPCS: 36415; 80053; 83605; 85025; 99284

== ENCOUNTER 2024-12-13 06:24 | Day surgery (SDC) | payer MEDICAID ==
[2024-12-13] MEDS ORDERED: Propofol 200 MG/20 ML SDV ONE (07:15)
[2024-12-13] MEDS ORDERED: fentaNYL 100 MCG/2 ML SDV ONE (07:15)
[2024-12-13] MEDS: Lactated Ringers 1,000 ML IV SCH (07:28)
[2024-12-13 08:39] VITALS: BP 84/47; PULSE 87
== END 2024-12-13 09:00 | disposition home or self-care (01) ==
LOC: JP.SDS 06:24
PROVIDERS: ATTEND Surgery
DX: Z12.11 Encounter for screening for malignant neoplasm of colon (principal); K64.8 Other hemorrhoids; N18.9 Chronic kidney disease, unspecified; Z88.8 Allergy status to other drugs, medicaments and biological substances
CPT/HCPCS: 45378; J2704; J3010; J7120

== ENCOUNTER 2024-12-15 12:49 | Emergency (ER) | payer MEDICAID ==
[2024-12-15 18:28] VITALS: PULSE 77
[2024-12-15 18:43] VITALS: BP 85/45
== END 2024-12-15 18:47 | disposition home or self-care (01) ==
LOC: JP.ED 12:49
DX: D63.1 Anemia in chronic kidney disease (principal); I12.9 Hypertensive chronic kidney disease with stage 1 through stage 4 chronic kidney disease, or unspecified chronic kidney disease; N18.6 End stage renal disease; Z99.2 Dependence on renal dialysis; Z86.16 Personal history of COVID-19; Z88.8 Allergy status to other drugs, medicaments and biological substances; Z79.899 Other long term (current) drug therapy
CPT/HCPCS: 36415; 36430; 85018; 86850; 86900; 86901; 86920; 86922; 99284; P9016

== ENCOUNTER 2025-02-09 06:25 | Day surgery (SDC) | payer MEDICAID, MEDICARE ==
[2025-02-09 07:02] LABS: PLATELET COUNT,PLT 72.0 K/uL (130-375); RED BLOOD CELL COUNT 2.92 M/uL (4.14-5.76); WHITE BLOOD CELL COUNT,WBC 9.4 K/uL (3.2-11.0)
[2025-02-09 07:20] LABS: BLOOD UREA NITROGEN,BUN 9.0 mg/dL (7-18); CARBON DIOXIDE,CO2 34.0 mmol/L (21-32); CHLORIDE,CL 98.0 mmol/L (100-108); EST CRCL DRUG DOSING (CG) 21.42 mL/min; ESTIMATED GFR 19.0 mL/min (>60); GLUCOSE RANDOM 111.0 mg/dL (74-106); POTASSIUM,K 4.0 mmol/L (3.6-5.2); SODIUM,NA 135.0 mmol/L (140-148)
[2025-02-09 07:22] LABS: CREATININE 3.6 mg/dL (0.8-1.3)
[2025-02-09] MEDS ORDERED: Dexamethasone 4 MG/ML SDV ONE (07:22)
[2025-02-09] MEDS ORDERED: Succinylcholine 200 MG/10 ML MDV ONE (07:22)
[2025-02-09] MEDS ORDERED: Ondansetron 4 MG/2 ML SDV ONE (07:22)
[2025-02-09] MEDS ORDERED: fentaNYL 250 MCG/5 ML SDV ONE (07:22)
[2025-02-09] MEDS ORDERED: Propofol 200 MG/20 ML SDV ONE (07:22)
[2025-02-09] MEDS: Nozin Nasal Sanitizer NASBOTH ONE (07:33)
[2025-02-09] MEDS: Lactated Ringers 1,000 ML IV SCH (07:33)
[2025-02-09] MEDS ORDERED: ePHEDrine 50 MG/ML SDV ONE (07:59)
[2025-02-09] MEDS ORDERED: Phenylephrine 1% 10 MG/ML SDV ONE (08:11)
[2025-02-09] MEDS: Bupivacaine 0.5%/EPINEPHrine 1:200,000 50 ML MDV ONE (08:43)
[2025-02-09 11:02] VITALS: BP 83/54; PULSE 76
== END 2025-02-09 11:10 | disposition home or self-care (01) ==
LOC: JP.SDS 06:25
PROVIDERS: ATTEND Specialist
DX: T84.84XA Pain due to internal orthopedic prosthetic devices, implants and grafts, initial encounter (principal); I12.9 Hypertensive chronic kidney disease with stage 1 through stage 4 chronic kidney disease, or unspecified chronic kidney disease; N18.30 Chronic kidney disease, stage 3 unspecified; K70.31 Alcoholic cirrhosis of liver with ascites; E86.1 Hypovolemia; F17.210 Nicotine dependence, cigarettes, uncomplicated; Z88.5 Allergy status to narcotic agent; Y83.1 Surgical operation with implant of artificial internal device as the cause of abnormal reaction of the patient, or of later complication, without mention of misadventure at the time of the procedure; Z79.899 Other long term (current) drug therapy
CPT/HCPCS: 20680; 36415; 80048; 85027; A9270; J0330; J0690; J1100; J2371; J2405; J2704; J3010; J3490; J7120